=== PATIENT | female | born 1980 | race Caucasian/White ===

== ENCOUNTER → 2018-08-12 09:23 | Outpatient (CLI) | payer OTHER, SELFPAY ==
[2018-08-12 10:17] LABS: Add Manual Diff / Slide Review NO; Basophils Absolute Auto 0 /uL (0-100); Basophils Percent Auto 0.5 % (0-2); Eosinophils Absolute Auto 200 /uL (0-450); Eosinophils Percent Auto 3.1 % (2-4); Hematocrit 42.6 % (36-46); Hemoglobin 14.4 g/dL (12.0-16.0); Lymphocytes Absolute Auto 3700 /uL (1100-4500); Lymphocytes Percent Auto 53.2 % (25-40); Mean Corpuscular HGB Conc 33.7 % (30-36); Mean Corpuscular Hemoglobin 30.2 PG (26-34); Mean Corpuscular Volume 89.3 fL (80-100); Monocytes Absolute Auto 600 /uL (0-900); Monocytes Percent Auto 8.9 % (3-14); Neutrophils Absolute Auto 2400 /uL (1500-7000); Neutrophils Percent Auto 34.3 % (50-75); Platelet Count 221 X10^3/uL (150-400); Red Blood Cell Count 4.76 X10^6/uL (4.0-5.2); Red Cell Distribution Width 13.2 % (11.6-14.8); White Blood Cell Count 6.9 X10^3/uL (4.5-11.0)
[2018-08-12 10:51] LABS: Alanine Aminotransferase 14 IU/L (9-52); Albumin 4.8 g/dL (3.5-5.0); Albumin Globulin Ratio 1.7 (1.0-2.8); Alkaline Phosphatase 72 U/L (38-126); Aspartate Aminotransferase 22 IU/L (14-36); BUN Creatinine Ratio 17.1 (6-22); Bilirubin Total 0.6 mg/dL (0.2-1.3); Blood Urea Nitrogen 12 mg/dL (7-17); Calcium 9.7 mg/dL (8.4-10.2); Carbon Dioxide 26 mmol/L (22-32); Chloride 102 mmol/L (98-107); Cholesterol 183 mg/dL (140-199); Estimated Glomerular Filt Rate > 60.0 mL/min (>60); Globulin 2.9 g/dL (1.7-4.1); Glucose 85 mg/dL (70-100); HDL Cholesterol 47 mg/dL (40-60); HEMOLYSIS < 15 (0-50); LDL Cholesterol Calculated 115 mg/dL (<100); Potassium 5.3 mmol/L (3.4-5.1); Sodium 141 mmol/L (137-145); Total Protein 7.7 g/dL (6.3-8.2); Triglycerides 105 mg/dL (35-150)
[2018-08-12 11:03] LABS: Vitamin D 25 Hydroxy (D3) 32.7 ng/mL (30.0-100.0)
[2018-08-12 11:04] LABS: Free T4, Direct Thyroxine 1.27 ng/dL (0.78-2.19)
[2018-08-12 11:18] LABS: Thyroid Stimulating Hormone 2.33 uIU/mL (0.47-4.68)
== END ==
PROVIDERS: Visit Provider Family Medicine
DX: J01.90 Acute sinusitis, unspecified (principal); E55.9 Vitamin D deficiency, unspecified; J01.01 Acute recurrent maxillary sinusitis; Z00.00 Encounter for general adult medical examination without abnormal findings
CPT/HCPCS: 36415; 80053; 80061; 82306; 84439; 84443; 85025

== ENCOUNTER → 2020-05-04 13:07 | Outpatient (CLI) | payer OTHER, SELFPAY ==
[2020-05-04] MEDS: COVID-19 VACC(MODERNA-1)/PF 100 MCG/0.5 ML VIAL IM (13:15)
== END ==
PROVIDERS: Visit Provider Internal Medicine
DX: Z23 Encounter for immunization (principal)
CPT/HCPCS: 0011A; 91301

== ENCOUNTER → 2020-05-22 16:59 | Outpatient (CLI) | payer OTHER, SELFPAY ==
--- NOTE | 2020-05-22 17:01 | DI.RAD.S_ITS ---
PROCEDURE: XR CHEST 2V INDICATIONS: CHEST PAIN TECHNIQUE: 2 views of the chest were acquired. COMPARISON: None. FINDINGS: Surgical changes and devices: None. Lungs and pleura: Lungs are clear. No pleural effusions or pneumothorax. Mediastinum: Mediastinal contours are normal. Heart size is normal. Bones and chest wall: No suspicious bony abnormalities. Soft tissues appear unremarkable. IMPRESSION: No acute cardiopulmonary disease. Dictated by: Kayli Ruiz M.D. on 05/22/2020 at 17:41 Approved by: Kayli Ruiz M.D. on 05/22/2020 at 17:42
== END ==
PROVIDERS: Referring Provider Family Medicine; Visit Provider Family Medicine
DX: R07.9 Chest pain, unspecified (principal)
CPT/HCPCS: 71046

== ENCOUNTER → 2020-05-31 13:10 | Outpatient (CLI) | payer OTHER, SELFPAY ==
[2020-05-31] MEDS: COVID-19 VACC #2, MRNA(MOD) 100 MCG/0.5 ML VIAL IM (13:15)
== END ==
PROVIDERS: Visit Provider Internal Medicine
DX: Z23 Encounter for immunization (principal)
CPT/HCPCS: 0012A; 91301

== ENCOUNTER → 2020-09-03 10:01 | Outpatient (CLI) | payer OTHER, SELFPAY ==
[2020-09-03 12:10] LABS: COVID19 -Nasal RAPID Negative (Negative)
== END ==
PROVIDERS: Visit Provider Student in an Organized Health Care Education/Training Program
DX: Z01.812 Encounter for preprocedural laboratory examination (principal); Z20.822 Contact with and (suspected) exposure to COVID-19
CPT/HCPCS: 87635

== ENCOUNTER → 2020-09-04 15:10 | Outpatient (CLI) | payer OTHER, SELFPAY ==
--- NOTE | 2020-09-04 15:52 | PM.TREADMILL ---
Cardiac Stress Test Report Referral & Results Date Patient Seen: 09/04/20 Time Patient Seen: 15:53 Requesting provider: Torrie Marin Indication: chest pain Rest ECG: Sinus rhythm Procedure Note: Standard Memo protocol, 9:22 mins, 9.4 METS Good exercise capacity, GERSON -7% Normal hemodynamic response to exercise No chest pain or anginal symptoms No significant ST changes at peak exercise No ectopy Impression: Normal exercise stress test Please note: Actual ECG tracings can be found in the PACS system.
--- NOTE | 2020-09-04 17:16 | DI.NM.S_ITS ---
PROCEDURE PERFORMED: Standard treadmill exercise stress test without imaging. DATE OF SERVICE: September 04, 2020 ORDERING PROVIDER: Torrie Marin MD INDICATIONS: The patient is a 39-year-old female with intermittent sporadic atypical chest pain. FINDINGS: 1. The patient was able to exercise for 9 minutes 11 seconds on a standard Memo protocol suggesting good exercise capacity with an GERSON of -9%, achieving 9.4 METS. 2. She had a normal heart rate and blood pressure response to exercise achieving a maximum heart rate of 166 BPM (92% of her predicted maximum). 3. She had no chest discomfort or other anginal symptoms. 4. The resting ECG shows sinus rhythm with normal ST segments. There are no significant ST-segment shifts or arrhythmias with exercise stress. IMPRESSION: 1. Normal exercise treadmill study with no ECG evidence of ischemia. 2. Good exercise capacity with a normal hemodynamic response and no angina or arrhythmias. Damaris Telles - ROSHAN/thi/dipti doc#: [id number]/job#: [id number] dd: 09/04/2020 16:43:00 dt: 09/04/2020 17:10:00 DICTATING MD/COPIES TO: Fermín Abbott MD; Torrie Marin MD COPIES MNE: CARMEN;
== END ==
PROVIDERS: PCP Family Medicine; Referring Provider Family Medicine; Visit Provider Family Medicine
DX: R07.89 Other chest pain (principal)
CPT/HCPCS: 93017

== ENCOUNTER → 2021-02-07 13:06 | Outpatient (CLI) | payer OTHER, SELFPAY ==
--- NOTE | 2021-02-07 | DI.US.S_ITS ---
PROCEDURE: US RENAL COMPLETE INDICATIONS: RULE OF KIDNEY STONES TECHNIQUE: Real-time scanning was performed of the kidneys and bladder, with image documentation. COMPARISON: None. FINDINGS: Kidneys: Kidneys are normal in size. Right kidney measures 9.1 cm long; left kidney measures 10.5 cm long. Right renal cortical thickness is 1.4 cm; left renal cortical thickness is 1.1 cm. Renal cortical echotexture is normal. No hydronephrosis or nephrolithiasis. No suspicious solid mass lesions. Bladder: Pre-void bladder volume is 104 mL. Post-void residual is 0 mL. Pre-void images demonstrate no intraluminal masses or stones. On pre-void images, bilateral ureteral jets are noted with color Doppler interrogation. Miscellaneous: No free pelvic fluid. IMPRESSION: No significant abnormality. Dictated by: Teodoro Simpson M.D. on 02/07/2021 at 13:39 Approved by: Teodoro Simpson M.D. on 02/07/2021 at 13:41
== END ==
PROVIDERS: PCP Family Medicine; Referring Provider Family Medicine; Visit Provider Family Medicine
DX: M62.830 Muscle spasm of back (principal); M54.9 Dorsalgia, unspecified
CPT/HCPCS: 76770

== ENCOUNTER 2021-02-09 18:41 | Emergency (ER) | payer OTHER, SELFPAY ==
[2021-02-09 18:49] VITALS: BP 135/83; PULSE 68; RESP 16; TEMP 36.2; O2SAT 100; BMI 27.3
[2021-02-09 20:22] LABS: Appearance Urine UA CLEAR; Bilirubin Urine UA NEGATIVE (NEGATIVE); Color Urine UA YELLOW; Glucose Urine UA TRACE g/dL (Negative); Ketones Urine UA NEGATIVE (NEGATIVE); Leukocyte Esterase Urine UA NEGATIVE (NEGATIVE); Nitrite Urine UA NEGATIVE (Negative); Occult Blood Urine UA TRACE-INTACT (Negative); Protein Urine UA NEGATIVE (Negative); Urobilinogen Urine UA 0.2 E.U./dL (0.2)
[2021-02-09 20:25] LABS: Pregnancy Test Urine Negative (Negative)
[2021-02-09 20:29] LABS: Amorphous Sediment Urine 1+; Bacteria Urine Occasional (0-1); Culture Indicated Urine Cult Not Indicated; RBC Urine 0-1/HPF (0-5/HPF); Squamous Epithelial Cell Urine 5-10 /HPF (0-5/HPF); WBC Urine 0-1/HPF (0-5/HPF)
--- NOTE | 2021-02-09 20:31 | DI.CT.S_ITS ---
PROCEDURE: CT KIDNEY URETER BLADDER (KUB) INDICATIONS: flank pain TECHNIQUE: Axial sections were acquired from the lung bases to the pubic symphysis. Coronal and sagittal reformats were performed. For radiation dose reduction, the following was used: automated exposure control, adjustment of mA and/or kV according to patient size. COMPARISON: None. FINDINGS: Image quality: Excellent. Lung bases: Unremarkable. Heart: No significant findings. URINARY: Right Kidney: No stones or hydronephrosis. Right Ureter: No hydroureter. Left Kidney: No stones or hydronephrosis. Left Ureter: No hydroureter. Bladder: Normal wall thickness. No stones. ABDOMEN: Liver: Unremarkable. Gallbladder: Unremarkable. Biliary ducts: Unremarkable. Pancreas: Unremarkable. Spleen: Unremarkable. Adrenal Glands: Unremarkable. Stomach and Bowel: Stomach, small bowel loops, and colon are normal in caliber and wall thickness. The appendix is normal in appearance. There is colonic diverticulosis without acute diverticulitis. Peritoneum: No abnormal intraperitoneal fluid. No free air. Ventral Wall: No hernia. Abdominal Nodes: No enlarged retroperitoneal or mesenteric lymph nodes. Vessels: Aorta and inferior vena cava are normal in size. PELVIS: Pelvic Organs: A foreign body is present in the vagina. Pelvic Nodes: Unremarkable. Miscellaneous: No inguinal hernias are seen. Bones: Unremarkable. Macro IMPRESSION: 1. No definite acute intra-abdominal abnormality. Specifically, no evidence of nephrolithiasis or obstructive uropathy. 2. No evidence of appendicitis. 3. Colonic diverticulosis without acute diverticulitis. Dictated by: Calvin Kwong M.D. on 02/09/2021 at 21:30 Approved by: Calvin Kwong M.D. on 02/09/2021 at 21:32
--- NOTE | 2021-02-09 21:32 | ED_ITS ---
HPI - Back Pain/Injury General Chief Complaint: Urogenital-Female Stated Complaint: Pain in the Back of Body, Inside Time Seen by Provider: 02/09/21 19:43 Source: patient Limitations: no limitations History of Present Illness HPI Narrative: 40-year-old female nonsmoker with noncontributory medical history presents with family in the chief complaint of ongoing right-sided back and flank pain for least the past few days. She states it is stabbing and cramping in nature and unlike any pain she has had before. She does have a history of musculoskeletal back pain but states this feels much different. She does not admit to any obvious provocation or palliation and radiates around flank into her right side as stated. She denies other symptoms such as fever chills nor nausea or vomiting. She has had no change in bowel habits or urinary complaints. She has been seen and evaluated by her primary care provider and had ultrasound which was unremarkable and anti-inflammatories switched over to Toradol which provides some but minimal help. She denies any traumatic injury, heavy lifting. Related Data Allergies Allergy/AdvReac Type Severity Reaction Status Date / Time morphine Allergy Verified 02/09/21 18:49 Review of Systems Review of Systems Narrative: GENERAL: Denies chills, fatigue, malaise, fever, sweats. HEENT: Denies sinus pain, ear pain, sore throat, difficulty swallowing, dizziness. RESPIRATORY: Denies dyspnea, cough, wheezing, hemoptysis, sputum. CARDIOVASCULAR: Denies chest pain, palpitations, orthopnea, edema, GASTROINTESTINAL: Denies nausea, vomiting, abdominal pain, diarrhea, constipation, melena. : Denies dysuria, frequency, incontinence, hematuria, urinary retention. MUSCULOSKELETAL: See HPI SKIN: Denies rash, skin lesions, or other NEUROLOGIC: Denies weakness, headache, numbness, change in speech, confusion, seizures, incoordination. PSYCHIATRIC: No concerning psychosocial issues. 12 point review of systems is negative except for those stated above Patient History Social History Smoking Status: Unknown if ever smoked Smoking Status: Unknown if ever smoked alcohol intake frequency: holidays/special occasions only Substance Use Type: does not use Exam Narrative Exam Narrative: GENERAL: [40] year old patient appears stated age. Well- developed patient, in mild distress. HEAD: Atraumatic. Normocephalic. EYES: Pupils equal round and reactive. Extraocular motions intact. No scleral icterus. No injection or drainage. ENT: Nose without bleeding, purulent drainage. Throat without erythema, tonsillar hypertrophy or exudate. Airway patent. NECK: Trachea midline. Non tender CARDIOVASCULAR: Regular rate and rhythm without murmurs, gallops, or rubs. RESPIRATORY: Clear to auscultation. Breath sounds equal bilaterally. No wheezes, rales, or rhonchi. GASTROINTESTINAL: Abdomen soft, non-tender, nondistended. EXTREMITIES: No edema or joint tenderness. BACK: Patient has decreased range of motion in his back due to pain. He has soft tissue tenderness to palpation. There is no bony point tenderness. Patient has no signs of cauda equina such as saddle anesthesia, decreased reflexes, or foot drop. Patient has negative straight leg raising NEURO: AOx3. SKIN: No rash or erythema of visible areas Initial Vital Signs Initial Vital Signs: Vital Signs Temperature 97.2 F L 02/09/21 18:49 Pulse Rate 68 02/09/21 18:49 Respiratory Rate 16 02/09/21 18:49 Blood Pressure 135/83 02/09/21 18:49 Pulse Oximetry 100 02/09/21 18:49 Course Orders Ordered: ED Orders 02/09/21 20:00 Test Urine Stat Urinalysis and Microscopic Stat 02/09/21 20:31 CT kidney ureter bladder (KUB) Stat Vital Signs Vital signs: Vital Signs - 8 hr 02/09/21 22:33 Pulse Rate 59 L Blood Pressure 141/87 H Pulse Oximetry 98 MDM - Back Pain/Injury Lab Data Labs: Lab Results 02/09/21 02/09/21 Range/Units 20:00 20:00 Urine Color Yellow Urine Appearance Clear Urine pH 5.0 (4.5-8.0) Ur Specific [place] 1.020 (1.000-1.035) Urine Protein Negative (Negative) Urine Glucose (UA) Trace H (Negative) g/dL Urine Ketones Negative (NEGATIVE) Urine Occult Blood Trace-intact (Negative) Urine Nitrate Negative (Negative) Urine Bilirubin Negative (NEGATIVE) Urine Urobilinogen 0.2 (0.2) E.U./dL Ur Leukocyte Esterase Negative (NEGATIVE) Urine RBC 0-1/hpf (0-5/HPF) Urine WBC 0-1/hpf (0-5/HPF) Ur Squamous Epith Cells 5-10 /hpf H (0-5/HPF) Amorphous Sediment 1+ Urine Bacteria Occasional (0-1) (None) Ur Culture Indicated? Cult not indicated Urine Test Negative (Negative) Imaging Data CT scan - abdomen/pelvis: Radiologist's Impression: Launch?[address] [address] [address] Scan Report Signed Patient: Damaris Telles MR#: [id number] : 1980 Acct:[id number] Age/Sex: 40 / F Date of Service: 02/09/21 Loc: ED Accession Number: [id number] ?? Procedure: CT kidney ureter bladder (KUB) Ordering Provider: Lele Weber D.O. PROCEDURE:? CT KIDNEY URETER BLADDER (KUB) ? INDICATIONS:? flank pain ? TECHNIQUE:? Axial sections were acquired from the lung bases to the pubic symphysis.? Coronal and sagittal reformats were performed.? For radiation dose reduction, the following was used: ?automated exposure control, adjustment of mA and/or kV according to patient size.? ? COMPARISON:? None. ? FINDINGS:? Image quality:? Excellent.? ? Lung bases:? Unremarkable.? ? Heart:? No significant findings. ? URINARY: Right Kidney: ? No stones or hydronephrosis.? Right Ureter:? No hydroureter.? ? Left Kidney: ? No stones or hydronephrosis. Left Ureter:? No hydroureter.? ? Bladder:? Normal wall thickness. No stones. ? ? ? ABDOMEN: Liver:? Unremarkable.? ? Gallbladder:? Unremarkable.? ? Biliary ducts:? Unremarkable.? ? Pancreas:? Unremarkable.? ? Spleen:? Unremarkable.? ? Adrenal Glands:? Unremarkable.? ? ? Stomach and Bowel:? Stomach, small bowel loops, and colon are normal in caliber and wall thickness.? The appendix is normal in appearance.? There is colonic diverticulosis without acute diverticulitis. Peritoneum:? No abnormal intraperitoneal fluid.? No free air.? ? Ventral Wall: ? No hernia.? Abdominal Nodes:? No enlarged retroperitoneal or mesenteric lymph nodes.? Vessels:? Aorta and inferior vena cava are normal in size.? ? PELVIS: Pelvic Organs:? A foreign body is present in the vagina. Pelvic Nodes: Unremarkable. Miscellaneous: No inguinal hernias are seen. ? ? ? Bones:? Unremarkable.? Macro ? IMPRESSION:? ? 1. No definite acute intra-abdominal abnormality.? Specifically, no evidence of nephrolithiasis or obstructive uropathy. ? 2. No evidence of appendicitis. ? 3. Colonic diverticulosis without acute diverticulitis. ? ? ? Dictated by: Calvin Kwong M.D. on 02/09/2021 at 21:30 ? ? Approved by: Calvin Kwong M.D. on 02/09/2021 at 21:32 ? MDM Narrative Medical decision making narrative: Multiple etiologies of back pain considered including; Epidural abscess, cauda equina, mass occupying lesion, and other considered including kidney stone, biliary disease and other. Patient's history and physical exam are reassuring, and today's minimal labs and imaging had no significant findings. We discussed the potential utility of further investigation including repeat labs today or even more advanced imaging with the use of IV contrast but elects to hold off for now. Patient has been given return precautions and has had questions answered to her apparent satisfaction Discharge Plan Departure Patient Disposition: Home Clinical Impression: Acute flank pain Instructions: Thoracic Back Pain Activity Restrictions/Additional Instructions: *You have been diagnosed with [right-sided back and flank pain. Your history and physical exam are reassuring. CT was also very reassuring, there are no significant findings *What to do: *Please continue to take your regular medications as directed. [ ] New medication prescriptions sent to your pharmacy: [ ] [ ] New medication written as a paper prescription [x ] No new medications given *Please follow up with your primary care provider in 2-3 days, call for an appointment. Let them know you were seen in the Emergency Department and that we ask that you be seen in follow up. We will electronically transmit a record of today's note if your PCP is in our system *If you do not have a primary care provider please contact the [facility] Resource line at [phone]. They will ask some questions about your medical history and help get you set up with a doctor in the community. *Return to Emergency Department if you should have any new, worsening or concerning symptoms, such as [fever greater than 101 F, shaking chills, worsening pain, persistent vomiting or other bothersome symptoms] . Referrals: Marin,Torrie, MD [Primary Care Provider] -
[2021-02-09 22:33] VITALS: BP 141/87; PULSE 59; O2SAT 98
== END 2021-02-09 22:36 | disposition home or self-care (01) ==
PROVIDERS: Emergency Provider Emergency Medicine; PCP Family Medicine
DX: R10.9 Unspecified abdominal pain (principal)
CPT/HCPCS: 74176; 81001; 81025; 99283; 99284

== ENCOUNTER → 2022-05-01 12:54 | Outpatient (CLI) | payer OTHER, SELFPAY ==
--- NOTE | 2022-05-01 | DI.MG.S_ITS ---
BILATERAL DIGITAL SCREENING MAMMOGRAM 3D/2D WITH CAD: 05/01/2022 CLINICAL: Baseline exam. Routine screening. No prior exams were available for comparison. Both breasts are heterogeneously dense, which may obscure small masses (category c / 51-75% glandular tissue). Current study was also evaluated with a Computer Aided Detection (CAD) system. No significant masses, calcifications, or other findings are seen in either breast. IMPRESSION: NEGATIVE There is no mammographic evidence of malignancy. A 1 year screening mammogram is recommended. This exam was interpreted at Station ID: [id number]. NOTE: For mammograms, a report in lay terms will be sent to the patient. Approximately 15% of breast malignancies will not be visualized mammographically. In the management of a palpable breast mass, a negative mammogram must not discourage biopsy of a clinically suspicious lesion. Electronically Signed By: Von Love M.D., jr/dav:05/01/2022 13:53:59 copy to: MARLIN MILLER M.D., ph: [phone], fax: [phone] letter sent: Normal Exam ACR BI-RADS Category 1: Negative 3341F
== END ==
PROVIDERS: PCP Family Medicine; Referring Provider Family Medicine; Visit Provider Family Medicine
DX: Z12.31 Encounter for screening mammogram for malignant neoplasm of breast (principal)
CPT/HCPCS: 77063; 77067

== ENCOUNTER → 2024-09-06 17:23 | Outpatient (CLI) | payer OTHER, SELFPAY ==
--- NOTE | 2024-09-06 17:26 | DI.RAD.S_ITS ---
PROCEDURE: XR ANKLE LT MIN 3V INDICATIONS: ACUTLE LT ANKLE PAIN TECHNIQUE: 3 views of the ankle were acquired. COMPARISON: None. FINDINGS: Bones: No fractures or dislocations. Ankle mortise is normally aligned. No suspicious bony lesions. Soft tissues: No tibiotalar joint effusion. Achilles tendon appears normal. IMPRESSION: No acute bony abnormality or significant effusion. Dictated by: Osmar Colvin M.D. on 09/06/2024 at 20:49 Approved by: Osmar Colvin M.D. on 09/06/2024 at 20:50
== END ==
PROVIDERS: PCP Family Medicine; Referring Provider Family Medicine; Visit Provider Family Medicine
DX: M25.572 Pain in left ankle and joints of left foot (principal)
CPT/HCPCS: 73610

== ENCOUNTER → 2024-09-14 07:49 | Outpatient (CLI) | payer OTHER, SELFPAY ==
--- NOTE | 2024-09-14 07:50 | DI.MRI.S_ITS ---
PROCEDURE: MR ANKLE LT WO/W CON INDICATIONS: mass of left ankle TECHNIQUE: Noncontrast sagittal T1 spin echo and T2 fast spin echo with fat saturation, axial proton density fast spin echo and T2 fast spin echo with fat saturation, axial T1 spin echo with fat saturation, coronal T1 spin echo and T2 fast spin echo with fat saturation through the ankle/hindfoot. Post-contrast axial, coronal, and sagittal T1 spin echo with fat saturation through the ankle/hindfoot. COMPARISON: [facility], CR, XR ANKLE LT MIN 3V, 09/06/2024, 17:44. FINDINGS: Image quality: Excellent. Bones and joints: There is subcutaneous soft tissue edema and swelling over medial aspect of lower leg and hindfoot. No marrow edema. No acute fracture or dislocation. No area of abnormal intraosseous enhancement. No osteochondral injuries of talar dome. Small joint effusion, no loose bodies. Medial structures: Thin walled cystic structure is seen in subcutaneous soft tissue posterior medial to the medial malleolus measures up to 1.5 x 1 x 1.5 cm in size series 4, image 18 and series 7, image 30. No contrast enhancement is noted within this structure. No enhancing soft tissue mass is seen. The posterior tibialis tendon is mildly thickened at the level of distal talus and talonavicular joint. The flexor digitorum longus, and flexor hallucis longus tendons are intact. The posterior tibial neurovascular bundle appears normal within the tarsal tunnel, without extrinsic mass effect. The deltoid ligament and spring ligament are intact. Lateral structures: The anterior talofibular, calcaneofibular, and posterior talofibular ligaments appear intact. More superiorly, the anterior and posterior tibiofibular ligaments appear intact, as is the intermalleolar ligament. The tibiofibular syndesmosis is normal in width at 2 mm or less. The peroneus longus and brevis tendons demonstrate normal location and morphology. The sinus tarsi demonstrates normal fatty signal, without edema, fibrosis, or cyst formation. Anterior structures: The tibialis anterior, extensor hallucis longus, and extensor digitorum longus tendons appear intact. The dorsal talonavicular ligament appears intact. Posterior and plantar structures: Achilles tendon is intact. Medial and lateral bands of the plantar fascia are of normal thickness. No abductor digiti quinti muscle atrophy to suggest Nieves neuropathy. IMPRESSION: 1. 1.5 x 1 x 1.5 cm thin walled cystic structure in subcutaneous soft tissue along posterior medial aspect of medial malleolus and show no contrast enhancement. Finding may represent a soft tissue ganglion cyst . Mild soft tissue swelling and edema along posterior medial aspect of distal lower leg extending to hindfoot. No other area of soft tissue cyst or fluid collection. No enhancing soft tissue mass. 2. No marrow edema. No fracture or dislocation. No suspicions intraosseous lesions or area of abnormal intraosseous enhancement. No osteochondral injuries of talar dome. Small joint effusion, no loose bodies. 3. Mild tendinosis involving posterior tibialis tendon at the level of mid to distal talus and talonavicular joint. Rest of the ankle tendons are intact. 4. Medial and lateral ankle ligaments are intact. Dictated by: Zen Coles M.D. on 09/15/2024 at 10:31 Approved by: Zen Coles M.D. on 09/15/2024 at 10:35
== END ==
PROVIDERS: PCP Family Medicine; Referring Provider Family Medicine; Visit Provider Family Medicine
DX: R22.42 Localized swelling, mass and lump, left lower limb (principal); M25.472 Effusion, left ankle
CPT/HCPCS: 73723; A9579